=== PATIENT | male | born 1965 | race Caucasian/White ===

== ENCOUNTER 2024-04-04 14:58 | Emergency (ER) | payer OTHER, BC, SELFPAY ==
[2024-04-04 15:02] VITALS: BP 147/94; PULSE 83; TEMP 37.1; O2SAT 100; BMI 24.5
--- NOTE | 2024-04-04 15:15 | ED.BURNSMOK1 ---
HPI - Burn/Smoke Inhalation General Chief complaint: Burn/Smoke Inhalation Stated complaint: BURN Time Seen by Provider: 04/04/24 15:04 Source: patient Limitations: no limitations History of Present Illness HPI Narrative: Patient is a 59-year-old male who presents to the emergency department for a burn to the palm of the left hand that occurred at work just prior to arrival. Patient was at work around melted plastic that was approximately 400 degrees when it splashed onto his left hand. Unknown last tetanus. No other associated injuries or millan. No medications taken prior to arrival Related Data Home Medications ?Medication ?Instructions ?Recorded ?Confirmed cyclobenzaprine 10 mg tablet 10 mg PO TID PRN muscle spasm 04/04/24 04/04/24 Previous Rx's ?Medication ?Instructions ?Recorded cephalexin 500 mg capsule 500 mg PO BID 10 days #20 caps 04/04/24 ketorolac 10 mg tablet 10 mg PO TID PRN pain #10 tabs 04/04/24 ondansetron 4 mg disintegrating 4 mg PO Q6H PRN nausea and 04/04/24 tablet vomiting #12 tabs oxycodone-acetaminophen 5 mg-325 1 tab PO Q6H PRN pain 5 days #20 04/04/24 mg tablet (Percocet) tabs Allergies Allergy/AdvReac Type Severity Reaction Status Date / Time No Known Drug Allergies Allergy Verified 04/04/24 15:07 Review of Systems ROS Constitutional Denies: fever or chills Ears, nose, mouth, and throat Denies: throat pain or nasal congestion Respiratory Denies: shortness of breath Gastrointestinal Denies: nausea or vomiting Musculoskeletal Denies: back pain Integumentary/Breast Reports: skin pain and skin tenderness; Denies: rash Hematologic/Lymphatic Denies: easy bruising or easy bleeding Exam Narrative Exam Narrative: Gen.: Awake, alert, in no distress Head: Normocephalic, atraumatic ENT: Moist mucous membranes Respiratory: No respiratory distress Extremities: Moves extremities equally, palm of the left hand with adhered black plastic, no circumferential burn or swelling. Limited range of motion, 2+ left radial pulse Psych: Normal mood and affect Neuro: No focal neuro deficit Skin: Warm, dry, intact Constitutional Vital Signs, click to edit/add: Last Vital Signs Temp 98.8 F 04/04/24 15:02 Pulse 83 04/04/24 15:02 Resp 20 04/04/24 15:02 BP 147/94 H 04/04/24 15:02 Pulse Ox 100 04/04/24 15:02 O2 Del Method Room Air 04/04/24 15:02 Lindsey/Nelly Nines Burn ? Citation [email or web address] Course Vital Signs Vital signs: Vital Signs Temperature 98.8 F 04/04/24 15:02 Pulse Rate 83 04/04/24 15:02 Respiratory Rate 20 04/04/24 15:02 Blood Pressure 147/94 H 04/04/24 15:02 Pulse Oximetry 100 04/04/24 15:02 Oxygen Delivery Method Room Air 04/04/24 15:02 Temperature 98.8 F 04/04/24 15:02 Pulse Rate 83 04/04/24 15:02 Respiratory Rate 20 04/04/24 15:02 Blood Pressure 147/94 H 04/04/24 15:02 Pulse Oximetry 100 04/04/24 15:02 Oxygen Delivery Method Room Air 04/04/24 15:02 MDM - Burn/Smoke Inhalation MDM Narrative Medical decision making narrative: Patient's left hand was soaked in ice water, he was treated with pain medication, tetanus update and Ancef in the ER. I discussed the case with Dr. Connelly at [facility] burn/trauma. He recommended a dry dressing, not attempting to remove the plastic and they will see the patient for follow-up next Monday. Patient was placed on pain medication, NSAIDs, Keflex for home with burn clinic referral. Return to the emergency department if symptoms change or worsen. He is neurovascularly intact at discharge. Discussed wound dressings/bulky dressings for home. SHARED APC VISIT, PHYSICIAN ATTESTATION: [id number] I performed a substantive part of the MDM during the patient?s E/M visit. I personally evaluated and examined the patient. I personally made or approved the documented management plan and acknowledge its risk of complications. Medical Records Attestation: I reviewed the patient's medical records. Discharge Plan Discharge Stand Alone Forms: Work/School Release, Portal Instructions Chief Complaint: Burn/Smoke Inhalation Clinical Impression: Burn of hand, left, Chemical burn Patient Disposition: Home, Self-Care Time of Disposition Decision: 15:58 Condition: Good Prescriptions / Home Meds: New oxycodone-acetaminophen [Percocet] 5-325 mg tablet 1 tab PO Q6H PRN (Reason: pain) 5 Days Qty: 20 0RF Rx Instructions: DX: T23.009A ondansetron 4 mg tablet,disintegrating 4 mg PO Q6H PRN (Reason: nausea and vomiting) Qty: 12 0RF ketorolac 10 mg tablet 10 mg PO TID PRN (Reason: pain) Qty: 10 0RF cephalexin 500 mg capsule 500 mg PO BID 10 Days Qty: 20 0RF No Action cyclobenzaprine 10 mg tablet 10 mg PO TID PRN (Reason: muscle spasm) Print Language: Spanish Instructions: Chemical Skin Burn (ED) Additional Instructions: Please call [facility] tomorrow to be scheduled for Monday [facility] General Surgery, Trauma, Surgical Critical Care [facility] Burn [facility] [place] [address] Referrals: Physician,Non-Staff, [Physician] - 1 week
[2024-04-04] MEDS: ADACEL DIPH,PERTUSS(ACELL),TET VAC/PF 0.5 ML ADULT SYRINGE IM (15:31)
[2024-04-04] MEDS: ONDANSETRON PF 4 MG/2 ML VIAL IV (15:46)
[2024-04-04] MEDS: HYDROMORPHONE HCL 1 MG/ML CARTRIDGE IV (15:47)
[2024-04-04] MEDS: CEFAZOLIN SODIUM/DEXTROSE,ISO 1 GM/50 ML PREMIX IV (15:49)
[2024-04-04 17:04] VITALS: PULSE 87; O2SAT 99
== END 2024-04-04 17:04 | disposition home or self-care (01) ==
PROVIDERS: Emergency Provider Emergency Medicine; Family Provider Family Medicine; PCP Family Medicine
DX: T65.891A Toxic effect of other specified substances, accidental (unintentional), initial encounter (principal); T23.452A Corrosion of unspecified degree of left palm, initial encounter; Z23 Encounter for immunization
CPT/HCPCS: 90471; 90715; 96365; 96375; 99284; J0690; J1170; J2405